=== PATIENT | male | born 1995 | race Hispanic/Latino ===

== ENCOUNTER 2022-10-02 11:05 | Day surgery (SDC) | payer OTHER ==
[~2022-10-02] VITALS: Ht 180.3 cm; Wt 109.3 kg
[~2022-10-02 11:05] MED LIST: IBUP200C25 PO
[2022-10-02] MEDS ORDERED: MIDAZOLAM INJ 2MG/2ML VIAL As Ordered ONE (11:15)
[2022-10-02] MEDS ORDERED: LIDOCAINE 2% 100MG/5ML SDV (FOR ANES.) As Ordered ONE (11:15)
[2022-10-02] MEDS ORDERED: propofoL 200 MG/20 ML VIAL As Ordered ONE ×3 (11:15→12:32)
[2022-10-02] MEDS ORDERED: fentaNYL 100 MCG/2 ML INJECTION As Ordered ONE (11:15)
[2022-10-02] MEDS ORDERED: CLINDAMYCIN 600 MG in IV 1 EA IV ONE (11:35)
[2022-10-02] MEDS ORDERED: LR 1,000 ML IV SCH (11:40)
[2022-10-02] MEDS ORDERED: LIDOCAINE 1% SDV 30ML VIAL As Ordered ONE (11:56)
[2022-10-02] MEDS ORDERED: BUPIVACAINE HCL 0.5% 30ML VIAL As Ordered ONE (11:56)
[2022-10-02] MEDS ORDERED: ACETAMINOPHEN 1000MG 100ML IV BAG As Ordered ONE (12:07)
[2022-10-02] MEDS ORDERED: NORCO, ANEXSIA 5/325MG TABLET (HYDROcodone/ACETAMINOPHEN) PO ONE (13:30)
[2022-10-02 13:49] VITALS: BP 139/85
== END 2022-10-02 14:15 | disposition home or self-care (01) ==
LOC: M SDC 11:05
PROVIDERS: ATTEND Podiatrist Foot & Ankle Surgery
DX: M24.272 Disorder of ligament, left ankle (principal); K21.9 Gastro-esophageal reflux disease without esophagitis; Z88.0 Allergy status to penicillin
CPT/HCPCS: 27695; 97116; C1713; J1100

== ENCOUNTER → 2023-05-07 | Outpatient (REF) | LOC: M PLAIMG 09:20 | PROVIDERS: ATTEND Internal Medicine | DX: M25.572 Pain in left ankle and joints of left foot (principal); M25.512 Pain in left shoulder; M79.641 Pain in right hand ==

== ENCOUNTER 2024-09-23 17:00 | Emergency (ER) | payer OTHER ==
[~2024-09-23] VITALS: Ht 180.3 cm; Wt 121.1 kg
[2024-09-23 18:17] LABS: BASO % 0.2 % (0.0-1.0); EOS % 0.2 % (0.0-3.0); HEMATOCRIT 47.4 % (42.0-52.0); HEMOGLOBIN 15.8 g/dl (13.5-17.5); LYMPH # 2.3 10^3/uL (1.5-5.0); LYMPH % 17.5 % (24.0-44.0); MEAN CORPUSCULAR HEMOGLOBIN 28.3 pg (27.0-33.0); MEAN CORPUSCULAR HGB CONC 33.3 g/dl (32.0-36.5); MEAN CORPUSCULAR VOLUME 84.9 fl (80.0-96.0); MONO # 0.7 10^3/uL (0.0-0.8); NEUTROPHILS # 10.1 10^3/uL (1.5-8.5); NEUTROPHILS % 76.6 % (36.0-66.0); PLATELET COUNT, AUTOMATED 268 10^3/uL (150-450); RED BLOOD COUNT 5.58 10^6/uL (4.30-6.10); WHITE BLOOD COUNT 13.2 10^3/uL (4.0-10.0)
[2024-09-23 18:45] LABS: CK-MB VALUE MASS < 1.0 NG/ML (<3.6); LIPASE 32 U/L (12-53)
[2024-09-23 18:47] LABS: CPK CREATINE PHOSPHOKINASE 117 U/L (46-171); MB/CK RELATIVE INDEX 0.85 (< OR =4)
[2024-09-23 18:48] LABS: ALBUMIN 4.2 G/DL (3.2-5.2); ALKALINE PHOSPHATASE 87 U/L (40-129); ALT/SGPT 37 U/L (7.0-40); AST/SGOT 22 U/L (<34); BILIRUBIN,DIRECT 0.1 MG/DL (<0.4); BILIRUBIN,TOTAL 0.5 MG/DL (0.3-1.2); BLOOD UREA NITROGEN 14 MG/DL (9-23); CALCIUM LEVEL 9.8 MG/DL (8.5-10.1); CARBON DIOXIDE LEVEL 30 MMOL/L (20-31); CHLORIDE LEVEL 104 MMOL/L (98-107); GLOMERULAR FILTRATION RATE > 60.0 (>60); GLUCOSE, FASTING 83 MG/DL (60-100); POTASSIUM SERUM 4.2 MMOL/L (3.5-5.1); SODIUM LEVEL 140 MMOL/L (136-145); TOTAL PROTEIN 7.4 G/DL (5.7-8.2)
[2024-09-23 18:49] LABS: FREE T4 1.38 NG/DL (0.89-1.76); THYROID STIMULATING HORMONE 2.556 uIU/ML (0.55-4.78)
[2024-09-23 22:36] VITALS: TEMP 97.4
[2024-09-23] MEDS ORDERED: ISOVUE-370 76% 100ML VIAL As Ordered ONE (23:15)
[2024-09-24 00:01] LABS: CK-MB VALUE MASS < 1.0 NG/ML (<3.6)
[2024-09-24 00:03] LABS: CPK CREATINE PHOSPHOKINASE 106 U/L (46-171); MB/CK RELATIVE INDEX 0.94 (< OR =4)
[2024-09-24] MEDS ORDERED: HYDR1TAB33 PO (00:20)
[2024-09-24 00:30] VITALS: BP 147/72; O2SAT 97
== END 2024-09-24 01:01 | disposition home or self-care (01) ==
LOC: M ED 17:00
DX: F41.9 Anxiety disorder, unspecified (principal); R07.89 Other chest pain; Z87.891 Personal history of nicotine dependence
CPT/HCPCS: 71046; 71275; 80048; 80076; 82550; 82553; 83690; 83735; 84439; 84443; 84484; 85025; 93005; 99284; Q9967